=== PATIENT | female | born 1940 | race Two or more races ===

== ENCOUNTER 2017-11-13 13:32 | Inpatient (IN) | payer OTHER ==
[~2017-11-13] VITALS: Ht 152.4 cm; Wt 62.6 kg
[2017-11-13 14:36] LABS: Basophils # (auto) 0.1 uL; Basophils % (auto) 0.7 % (0.0-2.0); Eosinophils # (auto) 0.1 uL; Eosinophils % (auto) 1.4 % (0.0-7.0); Hematocrit 27.5 % (36.0-46.0); Hemoglobin 8.8 g/dL (12.2-16.2); Lymphocytes # (auto) 1.9 uL; Lymphocytes % (auto) 22.5 % (10.0-50.0); Mean Corpuscular Hgb Conc. 32.1 g/dL (32.0-36.0); Mean Corpuscular Volume 87.3 fL (80.0-100.0); Monocytes # (auto) 0.9 uL; Monocytes % (auto) 11.2 % (0.0-12.0); Neutrophils # (auto) 5.3 uL; Neutrophils % (auto) 64.2 % (37.0-80.0); Nucleated Red Blood Cells % 0.1 %; Platelet Count (auto) 382 10^3/uL (140-450); Red Blood Cells 3.15 10^6/uL (4.0-5.20); Red Cell Distribution Width 15.8 % (11.8-14.3); White Blood Cell 8.3 10^3/uL (4.4-10.8)
[2017-11-13 14:54] LABS: INR 1.01 (0.9-1.15); Partial Thromboplastin Time 32.7 sec (22.64-33.71)
[2017-11-13 15:10] LABS: Albumin 3.5 g/dL (3.4-5.0); BUN/Creatinine Ratio 28.2; Calcium 8.3 mg/dL (8.5-10.1); Potassium 4.9 mmol/L (3.5-5.1)
[2017-11-13 15:14] LABS: Bilirubin, Total 0.3 mg/dL (0.2-1.0); Total Protein 7.5 g/dL (6.4-8.2)
[2017-11-13] MEDS ORDERED: CLOPIDOGREL BISULFATE 75 MG TAB PO SCH (16:15)
[2017-11-13] MEDS ORDERED: FUROSEMIDE 40 MG/4 ML VIAL IV ONE (16:45)
[2017-11-13] MEDS ORDERED: HYDROcodone-ACET 10/325MG TAB PO ONE (16:45)
[2017-11-13] MEDS ORDERED: HYDROcodone-ACET 7.5/325MG TAB PO ONE (17:15)
[2017-11-13] MEDS ORDERED: ALUM & MAG HYDROX-SIMETH LIQ(MAALOX) 30 ML PO ONE (17:45)
[2017-11-13] MEDS ORDERED: LORazepam 0.5 MG TAB PO PRN (17:45)
[2017-11-13] MEDS ORDERED: ACETAMINOPHEN 325 MG TAB PO PRN (17:45)
[2017-11-13] MEDS ORDERED: MORPHINE SULFATE 4 MG/ML SYR/VIAL IV PRN (17:45)
[2017-11-13] MEDS ORDERED: cloNIDine HCL 0.1 MG TAB PO PRN (17:45)
[2017-11-13] MEDS ORDERED: ZOLPIDEM TARTRATE 5 MG TAB PO PRN (17:45)
[2017-11-13] MEDS ORDERED: DEXTROSE (50%) 50ML SYRG IV PRN (17:45)
[2017-11-13] MEDS ORDERED: NITROGLYCERIN 0.4 MG SL TAB SL PRN ×2 (17:45)
[2017-11-13] MEDS ORDERED: MORPHINE SULF INJ 2 MG/ML SYRINGE 1ML IV PRN (17:45)
[2017-11-13] MEDS ORDERED: ONDANSETRON HCL 4 MG/2 ML VIAL IV PRN (17:45)
[2017-11-13] MEDS ORDERED: ASPirin 81 mg TAB PO SCH (18:15)
[2017-11-13] MEDS ORDERED: INSULIN 70/30 1unit/0.01ml Susp (100units/ml) SC SCH (22:00)
[2017-11-13] MEDS ORDERED: ATORVASTATIN 20 MG TAB PO SCH (22:00)
[2017-11-13 22:21] LABS: Urine Bacteria NONE SEEN /hpf (None Seen); Urine Blood Negative /uL (Negative); Urine Specific Gravity 1.006 (1.001-1.035); Urine WBC 1 /hpf (0 - 5)
[2017-11-13] MEDS: SODIUM CHLOR 0.9% PF (SALINE LOCK) 10ML VIAL IV SCH (22:45)
[2017-11-13] MEDS: ACCU-CHEK COMFORT CURVE STRIP VI SCH (22:46)
[2017-11-13] MEDS: InsuLIN REG 1unit/0.01ml Soln (100units/ml) SC SCH (22:55)
[2017-11-13] MEDS: FUROSEMIDE 40 MG/4 ML VIAL IV SCH (22:56)
[2017-11-13] MEDS: HYDROcodone-ACET 7.5/325MG TAB PO PRN (23:30)
[2017-11-14 00:45] LABS: Albumin 3.3 g/dL (3.4-5.0); BUN/Creatinine Ratio 29.8; Calcium 8.3 mg/dL (8.5-10.1); Potassium 3.9 mmol/L (3.5-5.1)
[2017-11-14 00:48] LABS: Bilirubin, Total 0.3 mg/dL (0.2-1.0); Total Protein 7.3 g/dL (6.4-8.2)
[2017-11-14 06:02] LABS: Basophils # (auto) 0 uL; Basophils % (auto) 0.4 % (0.0-2.0); Eosinophils # (auto) 0 uL; Eosinophils % (auto) 0.2 % (0.0-7.0); Hematocrit 28.4 % (36.0-46.0); Hemoglobin 9.4 g/dL (12.2-16.2); Lymphocytes # (auto) 0.8 uL; Lymphocytes % (auto) 8.3 % (10.0-50.0); Mean Corpuscular Hemoglobin 28.6 pg (28.0-32.0); Mean Corpuscular Hgb Conc. 33.1 g/dL (32.0-36.0); Mean Corpuscular Volume 86.4 fL (80.0-100.0); Monocytes # (auto) 0.6 uL; Monocytes % (auto) 5.9 % (0.0-12.0); Neutrophils # (auto) 8.2 uL; Neutrophils % (auto) 85.2 % (37.0-80.0); Nucleated Red Blood Cells % 0.1 %; Platelet Count (auto) 394 10^3/uL (140-450); Red Blood Cells 3.28 10^6/uL (4.0-5.20); Red Cell Distribution Width 15.6 % (11.8-14.3); White Blood Cell 9.7 10^3/uL (4.4-10.8)
[2017-11-14] MEDS: FUROSEMIDE 40 MG/4 ML VIAL IV SCH (06:21)
[2017-11-14] MEDS: SODIUM CHLOR 0.9% PF (SALINE LOCK) 10ML VIAL IV SCH ×2 (06:21→14:28)
[2017-11-14 06:23] LABS: Albumin 3.3 g/dL (3.4-5.0); BUN/Creatinine Ratio 32.1; Bilirubin, Total 0.3 mg/dL (0.2-1.0); Calcium 8.4 mg/dL (8.5-10.1); Magnesium 3.1 mg/dL (1.6-2.6); Potassium 3.9 mmol/L (3.5-5.1); Total Protein 7.7 g/dL (6.4-8.2)
[2017-11-14] MEDS ORDERED: INSULIN 70/30 1unit/0.01ml Susp (100units/ml) SC SCH (07:00)
[2017-11-14] MEDS: InsuLIN REG 1unit/0.01ml Soln (100units/ml) SC SCH ×3 (07:35→19:02)
[2017-11-14] MEDS: ACCU-CHEK COMFORT CURVE STRIP VI SCH ×3 (07:35→19:02)
[2017-11-14] MEDS ORDERED: FUROSEMIDE 40 MG/4 ML VIAL IV ONE (09:45)
[2017-11-14] MEDS ORDERED: POTASSIUM CHL 20 Meq TABLET PO SCH (10:00)
[2017-11-14] MEDS ORDERED: POTASSIUM CHL 10 Meq TABLET PO SCH (10:00)
[2017-11-14] MEDS ORDERED: ENALAPRIL MALEATE 2.5 MG TAB PO SCH (10:00)
[2017-11-14] MEDS ORDERED: CLOPIDOGREL BISULFATE 75 MG TAB PO SCH (10:00)
[2017-11-14] MEDS ORDERED: DOCUSATE SOD 100 MG CAP PO SCH (10:00)
[2017-11-14] MEDS ORDERED: amLODIPine BESYLATE 5 MG TAB PO SCH ×3 (10:00)
[2017-11-14] MEDS ORDERED: METOPROLOL SUCCINATE XL 50 MG TAB PO SCH (10:00)
[2017-11-14] MEDS: HYDROcodone-ACET 7.5/325MG TAB PO PRN (14:00)
[2017-11-14] MEDS ORDERED: FUROSEMIDE 40 MG/4 ML VIAL IV SCH (18:00)
[2017-11-14 19:43] VITALS: BP 128/72
[2017-11-14] MEDS ORDERED: ATORVASTATIN 20 MG TAB PO SCH (22:00)
== END 2017-11-14 19:42 | disposition short-term general hospital (02) | DRG 280 ==
LOC: ER 13:32 → TELE 13:33
PROVIDERS: ADMIT Internal Medicine; ATTEND Internal Medicine Pulmonary Disease
DX: I13.0 Hypertensive heart and chronic kidney disease with heart failure and stage 1 through stage 4 chronic kidney disease, or unspecified chronic kidney disease (principal); I50.33 Acute on chronic diastolic (congestive) heart failure; I21.A1 Myocardial infarction type 2; E10.21 Type 1 diabetes mellitus with diabetic nephropathy; E87.1 Hypo-osmolality and hyponatremia; R06.03 Acute respiratory distress; E83.41 Hypermagnesemia; I25.10 Atherosclerotic heart disease of native coronary artery without angina pectoris; D63.8 Anemia in other chronic diseases classified elsewhere; N18.3 Chronic kidney disease, stage 3 (moderate); E10.22 Type 1 diabetes mellitus with diabetic chronic kidney disease; E83.51 Hypocalcemia; G89.29 Other chronic pain; Z79.02 Long term (current) use of antithrombotics/antiplatelets; Z79.4 Long term (current) use of insulin; Z83.3 Family history of diabetes mellitus; Z88.6 Allergy status to analgesic agent; Z95.1 Presence of aortocoronary bypass graft
CPT/HCPCS: 36415; 71046; 80053; 80061; 81001; 82962; 83036; 83735; 83880; 84443; 84484; 85025; 85610; 85730; 87086; 93005; 93306; 93970; 96372; 96374; 96375; 96376; 99291; J1815